=== PATIENT | female | born 1995 | race Caucasian/White ===

== ENCOUNTER 2019-01-29 11:20 | Outpatient (REF) | payer OTHER, SELFPAY ==
--- NOTE | 2019-01-29 10:00 | PAPFT_PTH ---
PATIENT: Lili Mack LOC: [facility] U#:[id number] AGE/SX: 23/F ROOM: RE01/29/[address]: TODD Oswald : 1995 BED: DIS: 01/29/2019 SPEC #: [id number] RECD: 01/29/19 12:58 STATUS: BRIAN REQ #: [id number] OMKAR: 01/29/19 10:[address]: Nishi Rea DEPT: [facility] Cytology RECD BY: Penny Leach ENTERED: 01/29/19 12:58 SP TYPE: PAPFT JOSEPH DR: Unknown,Unknown Tissues: 1 - CX/ENDOCX FOR PAP SMEARS Procedures: PAP THIN PREP/UVM Screening Comments: [id number]
== END 2019-01-29 11:40 ==
LOC: LBN 11:20
PROVIDERS: Visit Provider Nurse Practitioner Family
DX: Z12.4 Encounter for screening for malignant neoplasm of cervix (principal)
CPT/HCPCS: 88142

== ENCOUNTER 2019-04-21 15:48 | Outpatient (REF) | payer OTHER, SELFPAY ==
[2019-04-21 21:41] LABS: HCT 41.3 % (36.0-46.0); HGB 14.1 g/dL (12.0-15.5); Mean Corp. HGB Concentration 34.1 g/dL (32.0-36.0); Mean Corpuscular Hemoglobin 28.3 pg (27.0-33.0); Mean Corpuscular Volume 82.8 fL (80-95); Mean Platelet Volume 10.2 fL (8.0-11.0); Platelet Count 272 x1000/uL (130-400); RBC 4.99 m/cumm (4.00-5.20); White Blood Cell Count 6.16 k/cumm (4.4-10.8)
[2019-04-21 22:07] LABS: Total Iron Binding Capacity 412 ug/dL (250-450)
[2019-04-21 22:24] LABS: Ferritin 43 ng/mL (8-388); TSH (W/Ref FT4) 2.06 uIU/mL (0.358-3.74)
[2019-04-22 06:50] LABS: Vitamin D 25 Total 41.1 ng/ml (30-100)
[2019-04-23 10:50] LABS: Hepatitis B Surface Ab Positive
== END 2019-04-21 16:08 ==
LOC: NCHCN 15:48
PROVIDERS: PCP Nurse Practitioner Family; Visit Provider Nurse Practitioner Family
DX: R53.83 Other fatigue (principal); Z11.59 Encounter for screening for other viral diseases; Z02.0 Encounter for examination for admission to educational institution
CPT/HCPCS: 82306; 85027; 86706; 82728; 83550; 84443

== ENCOUNTER 2020-05-02 15:44 | Outpatient (REF) | payer OTHER, SELFPAY ==
--- NOTE | 2020-05-02 14:00 | PAPFT_PTH ---
PATIENT: Lili Mack LOC: [facility] U#:[id number] AGE/SX: 24/F ROOM: RE05/02/[address]: TODD Oswald : 1995 BED: DIS: 05/02/2020 SPEC #: [id number] RECD: 05/02/20 17:04 STATUS: BRIAN RENed #: [id number] OMKAR: 05/02/20 14:[address]: Nishi Rea DEPT: [facility] Cytology RECD BY: Penny Leach ENTERED: 05/02/20 17:05 SP TYPE: PAPFT OTHR DR: Chelsie Purdy Tissues: 1 - CX/ENDOCX FOR PAP SMEARS Procedures: PAP THIN PREP/UVM Screening Comments: [id number]
[2020-05-04 12:48] LABS: Chlamydia Result Negative (Negative); GC Result Negative (Negative)
== END 2020-05-02 16:04 ==
LOC: LBN 15:44
PROVIDERS: PCP Nurse Practitioner Family; Visit Provider Nurse Practitioner Family
DX: Z11.3 Encounter for screening for infections with a predominantly sexual mode of transmission (principal); Z12.4 Encounter for screening for malignant neoplasm of cervix
CPT/HCPCS: 87491; 87591; 88142

== ENCOUNTER 2020-07-13 11:26 | Outpatient (REF) | payer OTHER, SELFPAY ==
[2020-07-13 20:53] LABS: HCT 40.3 % (36.0-46.0); HGB 13.4 g/dL (11.2-15.7); MCH 27.5 pg (27.0-33.0); MCHC 33.3 % (32.0-36.0); MCV 82.8 fL (80-95); MPV 9.7 fL (8.0-11.0); Platelet Count 334 10^3/uL (130-400); RBC 4.87 10^6/uL (3.93-5.22); RDW 12.8 % (11.7-14.6); RDW-SD 38.3 fL; WBC 6.62 10^3/uL (4.4-10.8)
[2020-07-13 21:16] LABS: ALT 20 U/L (14-59); AST 23 U/L (15-37); Albumin 3.6 g/dL (3.4-5.0); Alkaline Phosphatase 72 U/L (46-116); Anion Gap 9.6 mmol/L (3-11); BUN 10 mg/dL (7-18); Bilirubin, Total 0.7 mg/dL (0.2-1.0); CO2 26.4 mmol/L (21.0-32.0); CREATININE 0.84 mg/dL (0.55-1.02); Calcium 8.9 mg/dL (8.5-10.1); Chloride 101 mmol/L (98-107); Glucose 81 mg/dL (74-106); Potassium 4.4 mmol/L (3.5-5.1); Sodium 137 mmol/L (136-145); TSH (W/Ref FT4) 1.72 uIU/mL (0.36-3.74); Total Protein 7.1 g/dL (6.4-8.2)
== END 2020-07-13 11:46 ==
LOC: NCHCN 11:26
PROVIDERS: PCP Nurse Practitioner Family; Visit Provider Nurse Practitioner Family
DX: F41.9 Anxiety disorder, unspecified (principal); R53.83 Other fatigue
CPT/HCPCS: 80053; 85027; 84443

== ENCOUNTER 2020-12-24 23:16 | Emergency (ER) | payer OTHER, SELFPAY ==
--- NOTE | 2020-12-24 23:15 | RT.EKG_ITS ---
APPROVED REPORT Exam: Resting ECG Patient Location: E HR:90 bpm ECG Measurements Heart Rate 90 AXIS NC 133 P 77 QRSd 90 QRS 66 QT 364 T 22 QTc 445 Conclusion Sinus rhythm...normal P axis, V-rate 60- 99
[2020-12-24 23:20] VITALS: BP 119/72; PULSE 83; RESP 16; TEMP 36.4; O2SAT 100
--- NOTE | 2020-12-24 23:24 | ED.GENADUL_ITS ---
Discharge Plan Disposition Patient Disposition: [facility] Condition: Stable Discharge Details Clinical Impression: Non-ST elevation VT (NSTEMI) Primary Care Provider: Chelsie Purdy ED Provider: Scar Pritchard Home Meds and New Rx's Prescriptions: No Action fluoxetine 20 mg capsule 20 mg PO DAILY RF: 0 desogestrel-ethinyl estradiol [Apri] 0.15-0.03 mg tablet 1 tab PO DAILY Qty: 84 RF: 3 Medical Decision Making 25 yo female with no signicant pmhx comes in with chest pain starting around 10pm tonight and has never had this before. She states it is a tightness and achiness across the anterior chest. No other symptoms, no radiation of pain, no n/v, no diaphoresis, no dyspnea. She arrives with stable gait speaking clearly. Has no pericardial effusion on bedside ultrasound and normal appearing EF. Her heart score is 0, will send troponin. She has a low wells score but can't rule out PE with perc as she is on control, will send d dimer. No tearing back pain and normal vascular exam so doubt dissection. Normal lung sliding on bedside u/s so doubt ptx and no fever or cough so doubt pna labs show a troponin of 0.17, she states she has only mild tightness at 1/10 now and appears well, aspirin and heparin ordered, [place] [facility] [place]. AWaiting return call pt remains stable and spoke with cardiology [place] [facility] [place] who accepts for transfer, Dr. Brown is the accepting, they recommend giving 75mg plavix at present time. second troponin increased to over 0.4 spoke with cardiology and they would like to increase plavix to 300mg, pt remains stable and feels well when ambulance arrived for transfer patient requested something to help her feel less anxious for transport so IV ativan given she remains hemodynamically stable at the present time Differential Diagnosis Differential Diagnosis: pericarditis, pe, ptx, nstemi Imaging Data Radiologic Study: Attestation: I personally reviewed and interpreted this imaging study as follows: Imaging: X-Ray My impression: no acute findings Lab Data Lab results reviewed: Yes I reviewed the patient's lab results. ECG Data Attestation: I personally reviewed and interpreted this ECG (s) as follows: Prior ECG tracings: not available for review Interpretation: sinus rhythm, rate of 90, pr 133, qtc 445, no acute st t wave ischemic findings 2nd ekg shows sinus rhythm, rate of 77, pr 134, qtc 430 HPI General Mode of arrival: ambulatory . Date/Time Provider Initiated Documentation: 12/24/20 23:16 . Limitations to Documentation: no limitations . Information obtained by: patient . History of Present Illness 25 year old F presents to the emergency department with the chief complaint of chest pain , described as moderate, Quality is described as aching, and is localized to the chest. Patient reports no radiation. Patient started experiencing this hour(s) (1) and it has been constant. No relieving factors improve symptom(s), No exacerbating factors reported . Patient did receive the following treatments prior to arrival, none Related Data Home Medications Medication Instructions Recorded Confirmed desogestrel 0.15 mg-ethinyl 1 tab PO DAILY #84 tab 05/02/20 12/24/20 estradiol 0.03 mg tablet fluoxetine 20 mg capsule 20 mg PO DAILY 05/02/20 12/24/20 Previous Rx's Medication Instructions Recorded desogestrel 0.15 mg-ethinyl 1 tab PO DAILY #84 tab 05/02/20 estradiol 0.03 mg tablet Allergies Allergy/AdvReac Type Severity Reaction Status Date / Time amoxicillin Allergy Intermediate RASH Verified 12/24/20 23:43 Review of Systems All systems reviewed & are unremarkable except as noted in HPI and below Constitutional Constitutional: Denies chills, Denies fever(s) and Denies weakness Cardiovascular Cardiovascular: Denies dyspnea Respiratory Respiratory: Denies cough and Denies dyspnea Gastrointestinal Gastrointestinal: Denies abdominal pain, Denies nausea and Denies vomiting Musculoskeletal Musculoskeletal: Denies joint swelling Neurologic Neurologic: Denies weakness Psychiatric Psychiatric: Denies depression PFSH Medical History Jaw dislocation Oral contraceptive use (01/17/16) Surgical History wisdom tooth extraction (03/21/15) Family History Other Diabetes maternal side Personal history of malignant neoplasm MGF-brain Father Diabetes Headache Mother Healthy adult Brother Healthy adult Social History Smoking/Tobacco Use Status: Never Smoking risk assessment performed?: Yes Alcohol Intake: current Alcohol Intake frequency: a few times a week Drug use: Never Substance use type: does not use Counseling provided: none Do you feel safe at home: Yes Do you feel safe in your relationship?: Yes Exam Const General: no acute distress Orientation: alert HENMT Head: normal to inspection Ears: external ears normal General nose exam: external nose normal Mouth: moist mucous membranes Eyes General: appearance normal, both eyes and all related structures Neck Neck: normal visual inspection Resp Effort & Inspection: normal respiratory effort and able to speak in complete sentences Cardio Rate: regular rate Skin General skin exam: no rashes or lesions noted Neuro General: patient alert and patient oriented x3 Extrem General: normal to inspection Psych Mental Status: mental status grossly normal Critical Care Time Critical Care Time Critical Care Time: Yes Total Critical Care Time: 60 (minutes) Attestation: time spent initiating heparin infusion, frequent reassesments and hemodynamic monitoring in a patient with nstemi and potential to deteriorate at any time
[2020-12-24 23:36] VITALS: BP 96/44; PULSE 74; RESP 20; O2SAT 99
[2020-12-24 23:38] LABS: Abs Immature Grans 0.01 10^3/uL (0.0-0.06); Absolute Basophil Count 0.03 10^3/uL (0.0-0.2); Absolute Eosinophil Count 0.23 10^3/uL (0.0-0.7); Absolute Lymphocyte Count 2.54 10^3/uL (1.2-3.4); Absolute Monocyte Count 0.57 10^3/uL (0.1-0.8); Absolute Neutrophil Count 3.22 10^3/uL (1.2-6.7); Basophils % 0.5; Eosinophils % 3.5; HCT 38.7 % (36.0-46.0); HGB 12.9 g/dL (11.2-15.7); Immature Grans % 0.2; Lymphocytes % 38.5; MCH 27.6 pg (27.0-33.0); MCHC 33.3 % (32.0-36.0); MCV 82.9 fL (80-95); MPV 8.8 fL (8.0-11.0); Monocytes % 8.6; Neutrophils % 48.7; Nucleated RBC 0 %; Platelet Count 253 10^3/uL (130-400); RBC 4.67 10^6/uL (3.93-5.22); RDW 12.6 % (11.7-14.6); RDW-SD 38.6 fL
[2020-12-25] VITALS (9 sets, daily range): BP systolic 105–129; BP diastolic 69–87; PULSE 68–91; RESP 12–22; O2SAT 97–99
[2020-12-25 00:04] LABS: ALT 18 U/L (14-59); AST 17 U/L (15-37); Albumin 3.4 g/dL (3.4-5.0); Alkaline Phosphatase 89 U/L (46-116); Anion Gap 10.3 mmol/L (3-11); BUN 13 mg/dL (7-18); Bilirubin, Direct 0.06 mg/dL (0.00-0.20); Bilirubin, Total 0.4 mg/dL (0.2-1.0); CO2 25.7 mmol/L (21.0-32.0); CREATININE 0.8 mg/dL (0.55-1.02); Calcium 8.8 mg/dL (8.5-10.1); Chloride 100 mmol/L (98-107); Glucose 96 mg/dL (74-106); Lipase 68 U/L (73-393); Magnesium 1.9 mg/dL (1.8-2.4); Potassium 3.4 mmol/L (3.5-5.1); Sodium 136 mmol/L (136-145); Total Protein 7.6 g/dL (6.4-8.2)
[2020-12-25 00:23] LABS: Troponin I 0.17 ng/mL (<0.06)
[2020-12-25 00:25] LABS: D-Dimer 390 ng/mlFEU (<500)
--- NOTE | 2020-12-25 00:30 | DI.RAD_ITS ---
EXAM: XR PORTABLE CHEST AP CLINICAL HISTORY: chest pain. TECHNIQUE: 2D digital imaging was performed. COMPARISON: No exams were available for comparison FINDINGS: Heart size is normal. The mediastinum is not widened. Lungs are clear. No infiltrates nor obvious pleural effusions. Chest leads in place IMPRESSION: No acute pulmonary findings on this single AP portable view of the chest. DATA REPOSITORY: RADIATION DOSE DELIVERED:
--- NOTE | 2020-12-25 00:53 | DI.VRAD_ITS ---
PROCEDURE INFORMATION: Exam: XR Chest, 1 View Exam date and time: 12/25/2020 12:45 AM Age: 25 years old Clinical indication: Chest pain; Type not specified TECHNIQUE: Imaging protocol: XR of the chest Views: 1 view. COMPARISON: No relevant prior studies available. FINDINGS: Lungs: Lungs are clear throughout with no mass or consolidation detected. Pleural spaces: Unremarkable. No pleural effusion. No pneumothorax. Heart/Mediastinum: Heart size is normal and vessel margins are sharply defined. Bones/joints: No acute osseous lesions are detected. IMPRESSION: No acute findings. Dictated and Authenticated by: Leonard Webb MD. Ordering:RAFAEL Abbott MD
[2020-12-25 01:19] LABS: Source Nasopharynx
[2020-12-25 01:57] LABS: COVID-19 PCR Negative (Negative); Influenza A PCR Negative (Negative); Influenza B PCR Negative (Negative); RSV PCR Negative (Negative)
[2020-12-25] MEDS: Clopidogrel 75 MG TAB PO (02:07)
[2020-12-25 02:43] LABS: Troponin I 0.43 ng/mL (<0.06)
--- NOTE | 2020-12-25 02:45 | RT.EKG_ITS ---
APPROVED REPORT Exam: Resting ECG Patient Location: E HR:77 bpm ECG Measurements Heart Rate 77 AXIS MO 134 P 29 QRSd 83 QRS 52 QT 380 T 19 QTc 430 Conclusion Sinus rhythm...normal P axis, V-rate 60- 99
[2020-12-25] MEDS: Clopidogrel 75 MG TAB 225 MG PO (03:06)
[2020-12-25] MEDS: LORazepam 2 MG/ML VIAL 1 MG IVP (03:10)
== END 2020-12-25 03:15 | disposition short-term general hospital (02) ==
PROVIDERS: Emergency Provider Emergency Medicine; PCP Nurse Practitioner Family
DX: I21.4 Non-ST elevation (NSTEMI) myocardial infarction (principal); F41.9 Anxiety disorder, unspecified; Z20.822 Contact with and (suspected) exposure to COVID-19
CPT/HCPCS: 80053; 81025; 83690; 87637; 93005; 96365; 96366; 96375; 96376; 99291; 71045; 82248; 83735; 84484; 85025; 85379; 93010; J2060

== ENCOUNTER 2021-02-07 08:21 | Outpatient (CLI) | payer OTHER, SELFPAY ==
[2021-02-07 09:31] LABS: Troponin I < 0.05 ng/mL (<0.06)
== END 2021-02-07 08:22 | disposition home or self-care (01) ==
PROVIDERS: PCP Nurse Practitioner Family; Visit Provider Nurse Practitioner Family
DX: R07.9 Chest pain, unspecified (principal)
CPT/HCPCS: 36415; 84484

== ENCOUNTER 2021-02-16 16:39 | Outpatient (REF) | payer OTHER, SELFPAY ==
[2021-02-16 13:43] LABS: TSH (W/Ref FT4) 1.55 uIU/mL (0.36-3.74)
== END 2021-02-16 16:40 | disposition home or self-care (01) ==
LOC: NCHCN 16:39
PROVIDERS: PCP Nurse Practitioner Family; Visit Provider Nurse Practitioner Family
DX: R94.6 Abnormal results of thyroid function studies (principal)
CPT/HCPCS: 84443

== ENCOUNTER 2021-05-14 08:46 | Outpatient (REF) | payer OTHER, SELFPAY ==
--- NOTE | 2021-05-14 08:30 | PAPFT_PTH ---
PATIENT: Lili Mack LOC: [facility] U#:[id number] AGE/SX: 25/F ROOM: RE05/14/[address]: TODD Oswald : 1995 BED: DIS: 05/14/2021 SPEC #: [id number] RECD: 05/14/21 12:47 STATUS: BRIAN RENed #: [id number] OMKAR: 05/14/21 08:[address]: Nishi Rea DEPT: [facility] Cytology RECD BY: Penny Leach ENTERED: 05/14/21 12:48 SP TYPE: PAPFT OTHR DR: Chelsie Purdy Tissues: 1 - CX/ENDOCX FOR PAP SMEARS Procedures: PAP THIN PREP/UVM Screening Comments: [id number]
== END 2021-05-14 08:47 | disposition home or self-care (01) ==
LOC: LBN 08:46
PROVIDERS: PCP Nurse Practitioner Family; Visit Provider Nurse Practitioner Family
DX: Z12.4 Encounter for screening for malignant neoplasm of cervix (principal)
CPT/HCPCS: 88142

== ENCOUNTER 2022-02-15 16:34 | Outpatient (REF) | payer OTHER, SELFPAY ==
[2022-02-15 21:20] LABS: HCT 41.6 % (36.0-46.0); HGB 13.8 g/dL (11.2-15.7); MCH 28.7 pg (27.0-33.0); MCHC 33.2 % (32.0-36.0); MCV 86.5 fL (80-95); MPV 9.8 fL (8.0-11.0); Platelet Count 318 10^3/uL (130-400); RBC 4.81 10^6/uL (3.93-5.22); RDW 12.3 % (11.7-14.6); RDW-SD 39.1 fL; WBC 7.38 10^3/uL (4.4-10.8)
[2022-02-15 21:36] LABS: Anion Gap 7.6 mmol/L (3-11); BUN 13 mg/dL (7-18); CO2 29.4 mmol/L (21.0-32.0); CREATININE 0.9 mg/dL (0.55-1.02); Calcium 9.1 mg/dL (8.5-10.1); Chloride 103 mmol/L (98-107); Glucose 82 mg/dL (74-106); Potassium 4.1 mmol/L (3.5-5.1); Sodium 140 mmol/L (136-145)
[2022-02-15 21:37] LABS: Iron 59 ug/dL (50-170); Total Iron Binding Capacity 350 ug/dL (250-450); Transferrin Sat 17 % (15-50)
== END 2022-02-15 16:35 | disposition home or self-care (01) ==
LOC: NCHCN 16:34
PROVIDERS: PCP Nurse Practitioner Family; Visit Provider Nurse Practitioner Family
DX: F41.8 Other specified anxiety disorders (principal); R94.6 Abnormal results of thyroid function studies; R53.83 Other fatigue
CPT/HCPCS: 80048; 85027; 83540; 83550; 84443

== ENCOUNTER 2022-06-10 14:54 | Outpatient (REF) | payer OTHER, SELFPAY ==
--- NOTE | 2022-06-10 13:00 | PAPFT_PTH ---
PATIENT: Lili Mack LOC: [facility] U#:[id number] AGE/SX: 26/F ROOM: RE06/10/[address]: TODD Oswald : 1995 BED: DIS: 06/10/2022 SPEC #: [id number] RECD: 06/10/22 16:56 STATUS: BRIAN RENed #: [id number] OMKAR: 06/10/22 13:[address]: Nishi Rea DEPT: [facility] Cytology RECD BY: Timmy Garcia Tissues: 1 - CX/ENDOCX FOR PAP SMEARS Procedures: PAP THIN PREP/UVM Screening Comments: [id number]
== END 2022-06-10 14:55 | disposition home or self-care (01) ==
LOC: LBN 14:54
PROVIDERS: PCP Nurse Practitioner Family; Visit Provider Nurse Practitioner Family
DX: Z12.4 Encounter for screening for malignant neoplasm of cervix (principal)
CPT/HCPCS: 88142

== ENCOUNTER 2022-07-06 19:45 | Emergency (ER) | payer OTHER, SELFPAY ==
[2022-07-06 20:02] VITALS: BP 130/89; PULSE 95; RESP 18; TEMP 36.7; O2SAT 98
--- NOTE | 2022-07-06 20:05 | ED.GENADUL_ITS ---
Discharge Plan Disposition Patient Disposition: HOME Condition: Good Discharge Details Clinical Impression: Injury of conjunctiva and corneal abrasion of right eye w/o FB, Cat scratch Primary Care Provider: Chelsie Purdy ED Provider: Kevin Villarreal Home Meds and New Rx's Prescriptions: No Action Kyleena 17.5 mcg/24 hrs (5 yrs) 19.5 mg intrauterine device 1 device intrauterine ONCE Rx Instructions: as a single dose fluoxetine 20 mg capsule 20 mg PO DAILY Label Comments: 12/17/21- pt reports taking 40 mg Discharge Instructions Instructions: Corneal Abrasion (ED) Additional Instructions: Please apply the antibiotic drops, 2 drops every 3-4 hours for the next 7 to 10 days. Take Tylenol and Motrin as needed for pain. If you notice any worsening of your symptoms, or any new symptoms such as vomiting, diarrhea, fever, chills, shortness of breath, chest pain, numbness, weakness, or fainting , please return immediately to the emergency department for reevaluation. Please follow up with your primary care provider as soon as possible for reassessment and reevaluation . As always, it was a pleasure participating in your medical care today. Referrals: Chelsie Purdy [Primary Care Provider] - Medical Decision Making 26-year-old female with no significant past medical history whose immunizations are up-to-date including for tetanus, presents today for evaluation of a cat scratch to her right eyeball. Patient states that it happened about 20 minutes ago. Cats shots are up-to-date. Patient admits to have mild irritation on the eyeball, but no other complaints. Pain is made worse with movement of the eye. Exam demonstrates a corneal abrasion over the lateral aspect of the eye. Negative Britton sign. Immunizations are up-to-date. We will give polymyxin drops. Recommend Tylenol and Motrin at home. Discussed red flags for which to return. I have extensively reviewed the treatment plan and discharge instructions with the patient. I have addressed all patient concerns at this t ermias. The patient was made aware of what symptoms to monitor for that would warrant a return to the emergency department. Discussed the plan with the patient, they demonstrate verbal understanding and agreement with our assessment and plan at this time. The documentation in this chart was dictated using [employer] dictation software. Please excuse any dictation errors. HPI General Date/Time Provider Initiated Documentation: 07/06/22 19:52 . HPI Narrative: 26-year-old female with no significant past medical history whose immunizations are up-to-date including for tetanus, presents today for evaluation of a cat scratch to her right eyeball. Patient states that it happened about 20 minutes ago. Cats shots are up-to-date. Patient admits to have mild irritation on the eyeball, but no other complaints. Pain is made worse with movement of the eye. Related Data Home Medications Medication Instructions Recorded Confirmed fluoxetine 20 mg capsule 20 mg PO DAILY 12/17/21 07/06/22 levonorgestrel 17.5 mcg/24 hrs 1 device intrauterine ONCE 12/17/21 07/06/22 (5yrs) 19.5mg intrauterine device (Kyleena) Allergies Allergy/AdvReac Type Severity Reaction Status Date / Time amoxicillin Allergy Intermediate RASH Verified 07/06/22 20:05 General Stated Complaint: EyeProblem SANDOVAL: 4 Review of Systems All systems reviewed & are unremarkable except as noted in HPI and below PFSH All Active Problems Injury of conjunctiva and corneal abrasion of right eye w/o FB (Acute) Cat scratch (Acute) TMJ arthralgia (Acute) Medical History Jaw dislocation Presence of IUD Surgical History wisdom tooth extraction (03/21/15) Family History Other Diabetes maternal side Personal history of malignant neoplasm MGF-brain Father Diabetes Headache Mother Healthy adult Brother Healthy adult Social History Smoking/Tobacco Use Status: Never Smoking risk assessment performed?: Yes Alcohol Intake: current Alcohol Intake frequency: a few times a week Drug use: Never Substance use type: does not use Counseling provided: none Do you feel safe at home: Yes Do you feel safe in your relationship?: Yes Exam Narrative Exam Narrative: 1.Const: Well-nourished, Well-developed, appearing stated age 2.Eyes: PERRL, no conjunctival injection, and symmetrical lids. Righteye: EOMI, PERRL, Peripheral vision intact. No nystagmus. No clinical signs of septal/orbital cellulitis, no redness around the eye, no proptosis. No hyphema, no signs of trauma around the eye, no periorbital emphysema. No sluggishness of the pupil. No ophthalmoplegia. No afferent pupillary defect. Fluorescein exam is positive for corneal abrasion with a linear excoriation going from the 10 o'clock position down to the 7 o'clock position., negative Britton sign. Visual acuity as documented in chart. Eversion of the lids shows no evidence of retained foreign bodies 3.ENT: Atraumatic external nose and ears. Moist MM. Neck: Symmetric, trachea midline, No thyromegaly. 4.CVS: +S1/S2, No murmurs or gallops. Peripheral pulses 2+ and equal in all extremities. Brisk capillary refill in all extremities. 5.RESP: Unlabored respiratory effort. Clear to auscultation bilaterally. No wheezes rales or rhonchi 6.GI: Soft, Nontender/Nondistended, No hepatosplenomegaly. No guarding or rebound. 7.MSK: Normocephalic/Atraumatic, Extremities w/o deformity or ttp No cyanosis or clubbing, Normal movement of all extremities 8.Skin: Warm, Dry. No rashes or lesions. 9.Neuro: design analyst II-XII grossly intact. Sensation grossly intact, no focal neurologic deficits. 10.Psych: (AAO) x3. Appropriate mood and affect Course Vital Signs Vital signs: Vital Signs Temperature 36.7 C 07/06/22 20:02 Pulse 95 H 07/06/22 20:02 Respiratory Rate 18 07/06/22 20:02 Blood Pressure 130/89 07/06/22 20:02 Pulse Oximetry 98 07/06/22 20:02 Temperature 36.7 C 07/06/22 20:02 Temperature Source Oral 07/06/22 20:02 Pulse 95 H 07/06/22 20:02 Respiratory Rate 18 07/06/22 20:02 Respiratory Effort Non-Labored 07/06/22 20:04 Blood Pressure 130/89 07/06/22 20:02 Blood Pressure Position Sitting 07/06/22 20:02 Pulse Oximetry 98 07/06/22 20:02 Oxygen Delivery Method Room Air 07/06/22 20:02 Oxygen Flow Rate 0 07/06/22 20:02 Pain Level 0 07/06/22 20:02
[2022-07-06] MEDS: Tetracaine 0.5% 4 ML BTL OP (20:14)
[2022-07-06] MEDS: Polymyxin B/Trimethoprim Ophth Soln 10 ML BTL OD (20:14)
[2022-07-06] MEDS: Fluorescein STRIPS 100/BOX 1 MG OP (20:14)
== END 2022-07-06 20:15 | disposition home or self-care (01) ==
PROVIDERS: Emergency Provider Student in an Organized Health Care Education/Training Program; PCP Nurse Practitioner Family
DX: S05.01XA Injury of conjunctiva and corneal abrasion without foreign body, right eye, initial encounter (principal); W55.03XA Scratched by cat, initial encounter
CPT/HCPCS: 99283; 99284

== ENCOUNTER 2023-01-30 12:30 | Outpatient (REF) | payer OTHER, SELFPAY ==
[2023-01-30 17:20] LABS: Anion Gap 8.1 mmol/L (3-11); BUN 13 mg/dL (7-18); CO2 27.9 mmol/L (21.0-32.0); CREATININE 0.9 mg/dL (0.55-1.02); Chloride 103 mmol/L (98-107); Estimated GFR 89.86 (mL/min/1.73m2); Glucose 95 mg/dL (74-106); Potassium 4.9 mmol/L (3.5-5.1); Sodium 139 mmol/L (136-145)
== END 2023-01-30 12:31 | disposition home or self-care (01) ==
LOC: NCHCN 12:30
PROVIDERS: PCP Nurse Practitioner Family; Visit Provider Nurse Practitioner Family
DX: R53.83 Other fatigue (principal); R94.6 Abnormal results of thyroid function studies; L68.0 Hirsutism
CPT/HCPCS: 80048; 84443

== ENCOUNTER 2024-04-19 10:44 | Outpatient (CLI) | payer OTHER, SELFPAY ==
[2024-04-19 16:27] LABS: TSH (W/Ref FT4) 1.33 uIU/mL (0.36-3.74)
[2024-04-20 18:45] LABS: FSH 7.4 mIU/mL (See Note)
[2024-04-20 18:54] LABS: Prolactin 14.3 ng/mL (See Note)
[2024-04-26 09:38] LABS: Testosterone, Free 0.37 ng/dL (<0.13-1.06); Testosterone, Total 28 ng/dL (8-60)
== END 2024-04-19 10:45 | disposition home or self-care (01) ==
LOC: LBO 04-20 10:44
PROVIDERS: PCP Nurse Practitioner Family; Visit Provider Nurse Practitioner Women's Health
DX: N91.2 Amenorrhea, unspecified (principal)
CPT/HCPCS: 36415; 84402; 84403; 83001; 84146; 84443

== ENCOUNTER 2024-06-23 18:10 | Outpatient (CLI) | payer OTHER, SELFPAY ==
[2024-06-23 16:04] LABS: HCT 38.7 % (36.0-46.0); HGB 13.2 g/dL (11.2-15.7); MCH 27.6 pg (27.0-33.0); MCHC 34.1 % (32.0-36.0); MCV 81 fL (80-95); MPV 8.9 fL (8.0-11.0); Platelet Count 293 10^3/uL (130-400); RBC 4.79 10^6/uL (3.93-5.22); RDW 13.2 % (11.7-14.6); WBC 8.03 10^3/uL (4.4-10.8)
[2024-06-23 17:13] LABS: ALT 24 U/L (14-59); AST 17 U/L (15-37); Albumin 3.4 g/dL (3.4-5.0); Alkaline Phosphatase 110 U/L (46-116); BUN 7 mg/dL (7-18); Bilirubin, Total 0.43 mg/dL (0.2-1.0); CREATININE 0.7 mg/dL (0.55-1.02); Chloride 102 mmol/L (98-107); Estimated GFR 120.74 (mL/min/1.73m2); Glucose 101 mg/dL (74-106); Potassium 3.6 mmol/L (3.5-5.1); Sodium 137 mmol/L (136-145); Total Protein 7.4 g/dL (6.4-8.2)
[2024-06-23 17:31] LABS: Anion Gap 13.6 mmol/L (3-11)
[2024-06-23 17:33] LABS: CO2 21.4 mmol/L (21.0-32.0)
== END 2024-06-23 18:11 | disposition home or self-care (01) ==
LOC: LBO 18:11
PROVIDERS: PCP Nurse Practitioner Family; Visit Provider Obstetrics & Gynecology Gynecology
DX: O02.1 Missed abortion (principal); Z01.818 Encounter for other preprocedural examination; Z34.90 Encounter for supervision of normal pregnancy, unspecified, unspecified trimester
CPT/HCPCS: 36415; 80053; 85027; 86850; 86900; 86901; 84702

== ENCOUNTER 2024-06-24 08:55 | Day surgery (SDC) | payer OTHER, SELFPAY ==
--- NOTE | 2024-06-24 10:28 | PGE_ITS ---
Date of Service Date of service: 06/24/24 Time of Service: 10:28 Subjective Subjective Interval history since last seen: I was called by [facility]SU staff regarding pt undergoing D&C this morning. She requests not to have procedure. Pt had POCUS in [facility] yesterday at time for RADHIKA confirmation/viability. Non-viable reeves IUP was diagnosed and she was counseled regarding options for treatment of Missed AB at 6w6d. She was scheduled for suction D&C this morning. TV u/s performed in DI. No cardiac activity noted. After speaking to pt the procedure was cancelled for today and she will return to [facility] on Friday06/28/24 for repeat POCUS exam. Pt is agreeable to the plan. Time Spent with Patient Time Spent with Patient: >50 minutes Time was spent: preparing to see the patient(eg.review tests), obtaining and/or reviewing separately otained hiistory, ordering medications,tests, procedures, referring, communicating with other health nanny caregiver, indepentently interpreting results and counseling the patient
== END 2024-06-24 08:56 | disposition home or self-care (01) ==
LOC: SUR 08:55
PROVIDERS: PCP Nurse Practitioner Family; Visit Provider Obstetrics & Gynecology Gynecology
DX: Z53.09 Procedure and treatment not carried out because of other contraindication (principal)

== ENCOUNTER 2024-06-29 06:21 | Day surgery (SDC) | payer OTHER, SELFPAY ==
[2024-06-29] VITALS (24 sets, daily range): BP systolic 81–116; BP diastolic 41–78; PULSE 70–107; RESP 11–21; TEMP 36.3–36.5; O2SAT 97–100; BMI 29.0
[2024-06-29 06:56] LABS: HCT 36.2 % (36.0-46.0); HGB 12.7 g/dL (11.2-15.7); MCH 27.9 pg (27.0-33.0); MCHC 35.1 % (32.0-36.0); MCV 80 fL (80-95); Platelet Count 245 10^3/uL (130-400); RBC 4.55 10^6/uL (3.93-5.22); RDW 13.5 % (11.7-14.6); RDW-SD 38.8 fL; WBC 6.78 10^3/uL (4.4-10.8)
[2024-06-29] MEDS: Lactated Ringers 1,000 ML 125 ML IV (07:05)
[2024-06-29 07:09] LABS: ALT 16 U/L (14-59); AST 8 U/L (15-37); Albumin 3.2 g/dL (3.4-5.0); Alkaline Phosphatase 96 U/L (46-116); Anion Gap 11.3 mmol/L (3-11); BUN 5 mg/dL (7-18); Bilirubin, Total 0.67 mg/dL (0.2-1.0); CO2 22.7 mmol/L (21.0-32.0); CREATININE 0.7 mg/dL (0.55-1.02); Calcium 8.7 mg/dL (8.5-10.1); Chloride 105 mmol/L (98-107); Estimated GFR 120.74 (mL/min/1.73m2); Glucose 94 mg/dL (74-106); Potassium 3.4 mmol/L (3.5-5.1); Sodium 139 mmol/L (136-145); Total Protein 6.7 g/dL (6.4-8.2)
[2024-06-29] MEDS: DOXYCYCLINE 100 MG in Normal Saline 100 ML IVPB (07:10)
[2024-06-29 07:12] LABS: HCG Qual (Serum) Positive
--- NOTE | 2024-06-29 07:16 | ANES.PREOP_ITS ---
General Info Date of Service Date Performed: 06/29/24 Height: 5 ft 5 in Weight: 79.3 kg Body Mass Index (BMI): 29.0 Surgical Procedure: Operation Date: 06/29/24 07:40 Proposed Procedure Side Surgeon p Richi D & C Clarissa Richards MD Meds Allergies and Home Medications Allergies Allergy/AdvReac Type Severity Reaction Status Date / Time amoxicillin Allergy Intermediate RASH Verified 06/29/24 06:43 Home Medication ?Medication ?Instructions ?Recorded magnesium 200 mg tablet 200 mg PO DAILY 04/19/24 folic acid 400 mcg tablet 0.4 mg PO DAILY 05/31/24 [id number]-[id number] 18 mg-FA 400 1 tab PO DAILY 05/31/24 mcg-calcium 500 mg-vit K 50 mcg tablet (Women's Multivitamin) fluoxetine 40 mg capsule 10 mg PO DAILY 06/23/24 Current Visit Medications: Current Medications Generic Name Dose Route Start Last Admin Trade Name Freq PRN Reason Stop Dose Admin Ringer's Solution 1,000 mls @ 125 mls/hr 06/29/24 06:00 IV 06/29/24 23:59 INFUSION WILLIAM Doxycycline Hyclate 100 mg/ 100 mls @ 100 mls/hr 06/29/24 06:00 Sodium Chloride IVPB 06/29/24 23:59 GROUND SUPPORT EQUIPMENT ASSEMBLER [facility] IV Miscellaneous Supplies 1 each 06/29/24 06:00 Iv Access IV 06/29/24 23:59 DIRECTED WILLIAM Sodium Chloride 0 ml 06/29/24 06:00 Normal Saline Flush 10 Ml Syr IV 06/29/24 23:59 PRN PRN Sodium Chloride 0 ml 06/29/24 06:00 Normal Saline 10 Ml Vial IJ 06/29/24 23:59 DIRECTED PRN Sterile Water 0 ml 06/29/24 06:00 Water,Injection,Sterile 10 Ml Vial IJ 06/29/24 23:59 DIRECTED PRN PFSH Active Problems Active Problems: Problem Status Onset Code Missed Acute O02.1 Injury of conjunctiva and corneal abrasion of right eye w/o FB Acute S05.01XA TMJ arthralgia Acute M26.629 Medical History Medical History Wrist fracture, closed right; child Jaw dislocation Medical History Comments:: Slight nausea in past Surgical History Surgical History wisdom tooth extraction (03/21/15) Tobacco Smoking/Tobacco Use Status: Never Alcohol Alcohol Intake: current Alcohol intake frequency: a few times a week Substance Use Substance use: Rarely Substance use type: marijuana Counseling provided: none Prental History History 2 1 Para Hx # Term Pregnancies Multiple births Hx # Pregnancies Ectopic pregnancies AB induced Hx Number of Living Children 0 AB spontaneous 1 Vital Signs and Lab Results Vital Signs Most Recent Vital Signs in EMR: Most Recent Vital Signs Temp Pulse Resp BP Pulse Ox 36.5 C 89 16 108/75 98 06/29/24 06:46 06/29/24 06:46 06/29/24 06:46 06/29/24 06:46 06/29/24 06:46 Lab Results 06/29/24 06:41 06/29/24 06:41 Blood Type / Crossmatch: 2 Antibody Screen NEGATIVE 06/23/24 Complete Blood Count: 2 White Blood Count 6.78 10^3/uL (4.4-10.8) 06/29/24 06:41 Red Blood Count 4.55 10^6/uL (3.93-5.22) 06/29/24 06:41 Hemoglobin 12.7 g/dL (11.2-15.7) 06/29/24 06:41 Hematocrit 36.2 % (36.0-46.0) 06/29/24 06:41 Platelet Count 245 10^3/uL (130-400) 06/29/24 06:41 Complete Metabolic Panel: 2 Sodium 139 mmol/L (136-145) 06/29/24 06:41 Potassium 3.4 mmol/L (3.5-5.1) L 06/29/24 06:41 Chloride 105 mmol/L (98-107) 06/29/24 06:41 Carbon Dioxide 22.7 mmol/L (21.0-32.0) 06/29/24 06:41 BUN 5 mg/dL (7-18) L 06/29/24 06:41 Creatinine 0.7 mg/dL (0.55-1.02) 06/29/24 06:41 Est GFR (CKD-EPI 2020) 120.74 (mL/min/1.73m2) 06/29/24 06:41 Calcium 8.7 mg/dL (8.5-10.1) 06/29/24 06:41 Albumin 3.2 g/dL (3.4-5.0) L 06/29/24 06:41 Glucose 94 mg/dL (74-106) 06/29/24 06:41 Liver Function Panel: 2 Alanine Aminotransferase (ALT/SGPT) 16 U/L (14-59) 06/29/24 06: 41 Aspartate Amino Transf (AST/SGOT) 8 U/L (15-37) L 06/29/24 06:4 1 Coagulation Panel: 2 No Data to Display Cardiac Panel: 2 No Data to Display Arterial Blood Gas: 2 No Data to Display Venous Blood Gas: 2 No Data to Display Pancreas Panel: 2 No Data to Display Thyroid Panel: 2 No Data to Display Infectious Disease: 2 No Data to Display Blood Cultures: 2 No Data to Display Toxicology Panel: 2 No Data to Display Panel: 2 Urine HCG, Qualitative Positive 05/31/24 13:21 Serum HCG, Qualitative Positive A 06/29/24 06:41 Beta HCG, Quantitative 622075 mIU/mL (1-3) H 06/23/24 15:50 Anesthesia Assessment and Plan Anesthesia History Personal History: No History of Anesthesia Complications Family History: No Family History of Anesthesia Complications Exercise Tolerance Exercise Tolerance: Metabolic Equivalents>4 Pertinent Negatives Pertinent Negatives: No Symptoms of GERD Cardiac & Pulmonary Exam Cardiac Exam: Normal S1/S2 Heart Sounds Pulmonary Exam: Clear Bilateral Breath Sounds Implantable Cardiac Device Does patient have a Pacemaker or an ICD?: No Airway Exam Known Difficult Airway: No Mallampati Class: 2 Mouth Opening: Normal (> 3cm) Thyromental Distance: Greater than 3 cm Neck Range of Motion: Full ROM Neck Circumference: Normal Teeth Condition: Normal Dentition ASA Classification ASA Score: ASA 2 Emergency Case?: No NPO Status NPO Status: NPO Clears >2 hours, Solids >8 hours Status Status: Confirmed Anesthesia Plan Resuscitation Status: Full Code Anesthesia Technique: General Anesthesia Airway Planned: Natural Airway Monitors Used: Standard Monitors
[2024-06-29] MEDS: Lidocaine 1% Multi-Dose W/EPI 1/100,000 50 ML VIAL (07:56)
--- NOTE | 2024-06-29 07:57 | POCSPONT_PTH ---
PATIENT: Lili Mack LOC: [facility] U#:[id number] AGE/SX: 28/F ROOM: RE06/29/[address]: Clarissa Richards MD : 1995 BED: DIS: 06/29/2024 SPEC #: [id number] RECD: 06/29/24 12:45 STATUS: BRIAN REQ #: [id number] OMKAR: 06/29/24 07:[address]: Clarissa Richards DEPT: Surgical Specimen RECD BY: Penny Leach ENTERED: 06/29/24 12:46 SP TYPE: POCSPONT JOSEPH DR: Chelsie Purdy Tissues: 1 - ,SPONTANEOUS Procedures: GROSS AND MICRO LEVEL 4 Comments: [id number]
--- NOTE | 2024-06-29 08:20 | W.PM.OP ---
Date of service: 06/29/24 Time of Service: 08:00 Operative Note Operative Note DATE OF PROCEDURE: 06/29/24 PRE-OP DIAGNOSIS: Missed 7wks POST-OP DIAGNOSIS: same PROCEDURE: Suction dilation and curettage SURGEON: Clarissa Richards Refer to Anesthesia Record ESTIMATED BLOOD LOSS: 20 COMPLICATIONS: None Patient was transported to: same day Patient's condition: stable Indications: Pt with a 7wk missed . Declines medical management. Findings: Small uterus. POC removed with minimal bleeding. Procedure Description: After informed consent was signed the patient was taken to the operating room and given General room air anesthesia. SCDs were placed on her legs. She was prepped and draped in the dorsal lithotomy position in the [facility]. A time out was performed. Her bladder was drained of urine if not done immediately prior to entrance to the OR. Exam under anesthesia revealed normal external genitalia, vagina normal for age and a normal sized uterus. A speculum was placed into the vagina to reveal the cervix. The anterior lip of the cervix was grasped with a single tooth tenaculum. A paracervical block was given with 10ml of 0.25% marcaine. The cervix was dilated. The suction device was assembled and turned on. The uterine cavity was gently suctioned to remove the products of conception. There was a gritty texture in all four quadrants of the uterine cavity. There was minimal bleeding and the uterus was noted to be firm. The tenaculum was removed from the cervix with good hemostasis. The speculum was removed from the vagina. The patient was placed back into the supine position. She was moved to the stretcher and taken to the recovery room in stable condition.
[2024-06-29] MEDS: Ketorolac 15 MG/ML VIAL IVP (08:23)
--- NOTE | 2024-06-29 09:22 | W.ANESPOSTOP ---
Postoperative Evaluation Date, Time and Location Date Performed: 06/29/24 Time Performed: 09:22 Patient Location: Day Surgery Unit Vital Signs Most Recent Imported Vital Signs: Most Recent Vital Signs Temp Pulse Resp BP Pulse Ox 36.3 C L 71 16 107/68 100 06/29/24 08:45 06/29/24 08:45 06/29/24 08:45 06/29/24 08:45 06/29/24 08:45 Pain Score Most Recent Pain Score: Most Recent Pain Score Pain Level 4 06/29/24 08:45 Assessment Mental Status: Awake (Alert & Oriented to Patient Baseline) Airway and Respiratory Function: Patent airway with normal (patient baseline) respiratory exam Cardiovascular Function: Hemodynamically Stable Hydration Status: Adequately Hydrated Nausea & Vomiting: No Nausea or Vomiting Pain: Pain is tolerable per patient Peripheral Nerve Block: Patient did not receive a nerve block
== END 2024-06-29 09:45 | disposition home or self-care (01) ==
PROVIDERS: PCP Nurse Practitioner Family; Visit Provider Obstetrics & Gynecology
PROC: (CPT 59841; principal; 2024-06-29 07:30)
DX: O02.1 Missed abortion (principal); Z3A.01 Less than 8 weeks gestation of pregnancy
CPT/HCPCS: 59820; 36415; 80053; 85027; 86850; 86900; 86901; 88305; 84703; J1100; J1885; J2001; J2004; J2250; J2405; J2704

== ENCOUNTER 2024-09-06 11:32 | Outpatient (CLI) | payer OTHER, SELFPAY ==
[2024-09-06 12:49] LABS: HCG Quant, Pregnancy 16 mIU/mL (1-3)
== END 2024-09-06 11:33 | disposition home or self-care (01) ==
LOC: LBO 11:34
PROVIDERS: Nurse Practitioner Women's Health; PCP Nurse Practitioner Family; Visit Provider Obstetrics & Gynecology
DX: N91.2 Amenorrhea, unspecified (principal); Z01.419 Encounter for gynecological examination (general) (routine) without abnormal findings; Z32.02 Encounter for pregnancy test, result negative; Z31.9 Encounter for procreative management, unspecified
CPT/HCPCS: 36415; 84702

== ENCOUNTER 2024-09-08 03:54 | Outpatient (CLI) | payer OTHER, SELFPAY ==
[2024-09-08 11:59] LABS: HCG Quant, Pregnancy 13 mIU/mL (1-3)
== END 2024-09-08 03:55 | disposition home or self-care (01) ==
LOC: LBO 03:54
PROVIDERS: PCP Nurse Practitioner Family; Visit Provider Nurse Practitioner Women's Health
DX: Z31.9 Encounter for procreative management, unspecified (principal); N91.2 Amenorrhea, unspecified; Z01.419 Encounter for gynecological examination (general) (routine) without abnormal findings; Z32.02 Encounter for pregnancy test, result negative
CPT/HCPCS: 36415; 84702

== ENCOUNTER 2024-09-13 03:31 | Outpatient (CLI) | payer OTHER, SELFPAY ==
[2024-09-13 14:24] LABS: HCG Quant, Pregnancy 10 mIU/mL (1-3)
== END 2024-09-13 03:32 | disposition home or self-care (01) ==
LOC: LBO 03:31
PROVIDERS: PCP Nurse Practitioner Family; Visit Provider Nurse Practitioner Women's Health
DX: N91.2 Amenorrhea, unspecified (principal); Z01.419 Encounter for gynecological examination (general) (routine) without abnormal findings; Z31.9 Encounter for procreative management, unspecified; Z32.02 Encounter for pregnancy test, result negative
CPT/HCPCS: 36415; 84702

== ENCOUNTER 2024-09-20 03:02 | Outpatient (CLI) | payer OTHER, SELFPAY ==
[2024-09-20 16:22] LABS: HCG Quant, Pregnancy 8 mIU/mL (1-3)
== END 2024-09-20 03:03 | disposition home or self-care (01) ==
LOC: LBO 03:03
PROVIDERS: PCP Nurse Practitioner Family; Visit Provider Nurse Practitioner Women's Health
DX: N91.2 Amenorrhea, unspecified (principal); Z32.01 Encounter for pregnancy test, result positive
CPT/HCPCS: 36415; 84702

== ENCOUNTER 2024-11-01 13:18 | Outpatient (CLI) | payer OTHER, SELFPAY ==
[2024-11-01 09:54] LABS: HCG Quant, Pregnancy 1 mIU/mL (1-3)
[2024-11-04 12:28] LABS: Antimullerian Hormone 6.9 ng/mL (0.89-9.9)
== END 2024-11-01 13:19 | disposition home or self-care (01) ==
LOC: LBO 13:19
PROVIDERS: PCP Nurse Practitioner Family; Visit Provider Nurse Practitioner Women's Health
DX: Z32.00 Encounter for pregnancy test, result unknown (principal); Z31.9 Encounter for procreative management, unspecified
CPT/HCPCS: 36415; 83520; 84702

== ENCOUNTER 2024-12-24 07:47 | Outpatient (CLI) | payer OTHER, SELFPAY ==
[2024-12-24 08:22] LABS: HCG Quant, Pregnancy 24 mIU/mL (1-3)
== END 2024-12-24 07:48 | disposition home or self-care (01) ==
LOC: LBO 07:47
PROVIDERS: PCP Nurse Practitioner Family; Visit Provider Obstetrics & Gynecology
DX: O26.851 Spotting complicating pregnancy, first trimester (principal)
CPT/HCPCS: 36415; 84702

== ENCOUNTER 2024-12-27 03:07 | Outpatient (CLI) | payer OTHER, SELFPAY ==
[2024-12-27 15:05] LABS: HCG Quant, Pregnancy 46 mIU/mL (1-3)
== END 2024-12-27 03:08 | disposition home or self-care (01) ==
LOC: LBO 03:07
PROVIDERS: PCP Nurse Practitioner Family; Visit Provider Obstetrics & Gynecology
DX: O26.851 Spotting complicating pregnancy, first trimester (principal); Z32.01 Encounter for pregnancy test, result positive
CPT/HCPCS: 36415; 84702

== ENCOUNTER 2025-01-31 12:49 | Outpatient (CLI) | payer OTHER, SELFPAY ==
[2025-01-31 13:20] LABS: PTT Activated 28.1 sec (20.6-30.2)
[2025-01-31 14:16] LABS: TSH (W/Ref FT4) 1.57 uIU/mL (0.36-3.74)
[2025-01-31 22:28] LABS: Thyroglobulin Antibody <15 U/mL (<=60); Thyroperoxidase Antibody <28 U/mL (<=60)
[2025-02-02 10:51] LABS: Activated Partial Thrombo Time 34 sec (25 - 37); DRVVT Screen Ratio 1.18 ratio (<1.20); Prothrombin Time (PT) 11.2 sec (9.4 - 12.5)
[2025-02-02 13:04] LABS: Antimullerian Hormone 6.1 ng/mL (0.89-9.9)
[2025-02-02 14:29] LABS: Beta 2 Glycoprotein 1 Ab IgA <9.4 SAU
[2025-02-03 16:32] LABS: Phospholipid Ab, IgG <9.4 GPL; Phospholipid Ab, IgM <9.4 MPL
== END 2025-01-31 12:50 | disposition home or self-care (01) ==
LOC: LBO 12:51
PROVIDERS: PCP Nurse Practitioner Family; Visit Provider Obstetrics & Gynecology
DX: N96 Recurrent pregnancy loss (principal)
CPT/HCPCS: 36415; 85390; 85610; 85613; 85730; 86146; 86147; 86376; 83520; 84443

== ENCOUNTER 2025-05-02 16:01 | Outpatient (CLI) | payer OTHER, SELFPAY ==
[2025-05-02 16:37] LABS: HCG Quant, Pregnancy < 1 mIU/mL (1-3)
[2025-05-02 22:54] LABS: Estradiol 171 pg/mL (See Note)
[2025-05-02 23:01] LABS: LH 1.8 mIU/mL (See Note)
[2025-05-02 23:04] LABS: Progesterone 16.4 ng/mL (See Table)
== END 2025-05-02 16:02 | disposition home or self-care (01) ==
LOC: LBO 16:02
PROVIDERS: PCP Nurse Practitioner Family; Visit Provider Obstetrics & Gynecology Reproductive Endocrinology
DX: N92.5 Other specified irregular menstruation (principal)
CPT/HCPCS: 36415; 82670; 83002; 84144; 84702

== ENCOUNTER 2025-05-09 13:19 | Outpatient (CLI) | payer OTHER, SELFPAY ==
[2025-05-09 13:02] LABS: HCG Quant, Pregnancy < 1 mIU/mL (1-3)
== END 2025-05-09 13:20 | disposition home or self-care (01) ==
LOC: LBO 13:19
PROVIDERS: PCP Nurse Practitioner Family; Visit Provider Obstetrics & Gynecology Reproductive Endocrinology
DX: N97.9 Female infertility, unspecified (principal); Z13.79 Encounter for other screening for genetic and chromosomal anomalies
CPT/HCPCS: 36415; 84144; 84702

== ENCOUNTER 2025-08-22 14:53 | Emergency (ER) | payer OTHER, SELFPAY ==
[2025-08-22 14:55] VITALS: BP 128/102; PULSE 76; RESP 18; TEMP 36.6; O2SAT 97
--- NOTE | 2025-08-22 15:00 | RT.EKG_ITS ---
APPROVED REPORT Exam: Resting ECG Reason for Exam: chest pain Patient Location: E HR:86 bpm ECG Measurements Heart Rate 86 AXIS VA 132 P 73 QRSd 85 QRS 71 QT 367 T 43 QTc 440 Conclusion Sinus rhythm, rate 86 No interval abnormalities No STEMI No significant changes from priors
--- NOTE | 2025-08-22 15:45 | DI.RAD_ITS ---
Exam(s) XR CHEST 2V PA LATERAL EXAM: XR CHEST 2V PA LATERAL CLINICAL HISTORY: Chest pain TECHNIQUE: 2D digital imaging was performed. Two views. COMPARISON: CR,XR XR PORTABLE CHEST AP from 12/25/2020 FINDINGS: Stable moderate in leads are coiled over the anterior chest. HEART: Normal size. Aorta: Not dilated. PULMONARY VASCULATURE: Normal. MEDIASTINUM: Unremarkable. LUNGS: Clear. PLEURAL SPACE: No pleural effusion or pneumothorax. BONE:Unremarkable for age. SOFT TISSUES: Unremarkable. IMPRESSION: No acute abnormality. DATA REPOSITORY: RADIATION DOSE DELIVERED:
[2025-08-22 15:58] VITALS: RESP 18
--- NOTE | 2025-08-22 15:59 | W.ED.GENAD ---
Discharge Plan Disposition Patient Disposition: Home Condition: Stable Discharge Details Clinical Impression: COVID-19, Chest discomfort Primary Care Provider: Chelsie Purdy ED Provider: Kiana Ivey Home Meds and New Rx's Prescriptions: No Action folic acid 400 mcg tablet 0.4 mg PO DAILY Women's Multivitamin 18 mg-400 mcg- 500 mg-50 mcg tablet 1 tab PO DAILY magnesium 200 mg tablet 200 mg PO DAILY Zepbound 2.5 mg/0.5 mL pen injector SUBCUT Discharge Instructions Instructions: COVID-19 ED Additional Instructions: You were seen in the emergency department today for evaluation of chest discomfort in the setting of a recent diagnosis of COVID-19. In our department your a full physical examination performed, had an EKG that was reassuring and had laboratory studies that did not show any abnormalities, including 2 negative troponins. Your x-ray was normal, though I do recommend that you continue to take your Paxlovid and any [id number] medications including aspirin that you need to manage your discomfort. Your potassium was on the low side of normal, you can always supplement this with dietary choices such as potatoes, bananas, leafy greens. Please follow-up with your primary care provider in the next few days to discuss this visit and any symptoms that change, worsen, or persist. Thank you for allowing us to be part of your care. Discharge Data Discharge Date/Time-TO BE ENTERED AT DEPARTURE: 08/22/25 18:01 HPI General Mode of arrival: ambulatory. Date/Time Provider Initiated Documentation: 08/22/25 15:01. Limitations to Documentation: no limitations. Information obtained by: patient, family and old records reviewed. HPI Narrative: This is a 29-year-old female patient with a recent diagnosis of COVID-19 with a total of 6 days of symptoms, presenting for evaluation of chest discomfort. She reports that she has been taking Paxlovid, and has been taking aspirin given a history of elevated troponin after the COVID vaccine. She states that she presented today as the chest pain is causing her concern and she wants to ensure that she is not having a similar event. She reports that she has had a cough that is not productive of sputum, has not had a fever in a few days, has been maintaining her hydration and has otherwise been without changes in her health. The pain is located in the left/sternal region of her chest, does not radiate, is dull. Related Data Home Medications ?Medication ?Instructions ?Recorded ?Confirmed magnesium 200 mg tablet 200 mg PO DAILY 04/19/24 08/22/25 folic acid 400 mcg tablet 0.4 mg PO DAILY 05/31/24 08/22/25 qzellfci-skf-icpy 18 mg-FA 400 1 tab PO DAILY 05/31/24 08/22/25 mcg-calcium 500 mg-vit K 50 mcg tablet (Women's Multivitamin) tirzepatide (weight loss) 2.5 mg subcut 08/22/25 mg/0.5 mL subcutaneous pen injector (Zepbound) Allergies Allergy/AdvReac Type Severity Reaction Status Date / Time amoxicillin Allergy Intermediate RASH Verified 08/22/25 14:59 General Stated Complaint: Chest Pain SANDOVAL: 3 Exam Narrative Exam Narrative: Gen: Awake and alert, in no apparent distress HEENT: Non-icteric sclera Neck: Supple Lungs: No apparent respiratory distress, normal respiratory effort. Lung sounds clear and equal bilaterally without wheezing, rhonchi, rales CV: Appears well perfused, heart with regular rate and rhythm, no murmurs auscultated, strong distal pulses Abdomen: Non-distended MSK: Moves 4 extremities without apparent limitation in ROM. No peripheral edema or unilateral calf swelling Skin: Visualized skin without rashes, cyanosis. Neuro: Normal Gait, no obvious focal deficits or facial asymmetry. Speaks in full, clear sentences. Psych: Appropriate for situation. Course Vital Signs Vital signs: Vital Signs Temperature 36.6 C 08/22/25 14:55 Pulse 76 08/22/25 14:55 Respiratory Rate 18 08/22/25 14:55 Blood Pressure 128/102 H 08/22/25 14:55 Pulse Oximetry 97 08/22/25 14:55 Temperature 36.6 C 08/22/25 14:55 Pulse 76 08/22/25 14:55 Respiratory Rate 18 08/22/25 14:55 Blood Pressure 128/102 H 08/22/25 14:55 Pulse Oximetry 97 08/22/25 14:55 Pain Level 2 08/22/25 14:55 Medical Decision Making This is a 29-year-old female patient presenting for evaluation of chest pain in the setting of a recent diagnosis of COVID-19. My differential includes but is not limited to sequelae of viral upper respiratory infection/COVID-19, certainly considered pericarditis and myocarditis, ACS, arrhythmia, pulmonary abnormalities including pneumonia, bronchitis. Obtained an EKG which shows a sinus rhythm with no evidence of ischemia, interval abnormality, or ectopy. We will obtain a chest x-ray and labs to include CBC, CMP, magnesium, troponin, and lipase. -I independently interpreted the laboratory studies, which show no significant leukocytosis, anemia, or thrombocytopenia. The chemistry panel is without evidence of electrolyte abnormality, kidney dysfunction, or liver injury, other than a borderline low potassium at 3.3 which the patient was instructed to replete orally through diet. Initial troponin is very low at 5, 1 hour delta troponin 4, and I have a very low concern for ongoing cardiac ischemia. The chest x-ray was reviewed by myself and shows no abnormality to explain the patient's symptoms. I am most concerned for sequelae of COVID-19 infection and counseled the patient on good hydration and nutrition, ongoing NSAID therapy as needed for discomfort, and close outpatient follow-up. At this time, the patient has had a full medical evaluation and is safe for discharge to home. They are hemodynamically stable, ambulatory, and tolerating PO. They are understanding of the follow-up plan and return precautions. They left our facility without incident. Kiana Ivey MD [facility] All Active Problems (Updated 08/22/25 @ 17:45 by Kiana Ivey MD) Chest discomfort (Acute) COVID-19 (Acute) Recurrent loss (Acute) Otalgia of right ear (Acute) TMJ arthralgia (Acute) Medical History (Updated 08/22/25 @ 17:45 by Kiana Ivey MD) Injury of conjunctiva and corneal abrasion of right eye w/o FB Wrist fracture, closed right; child Jaw dislocation Surgical History History of D&C 06/29/24 for 7wk MAB wisdom tooth extraction (03/21/15) Family History Other Diabetes maternal side Personal history of malignant neoplasm MGF-brain Father Diabetes Headache Mother Healthy adult Brother Healthy adult Social History Smoking/Tobacco Use Status: Never Smoking risk assessment performed?: Yes Alcohol Intake: current Alcohol Intake frequency: a few times a week Drug use: Rarely Substance use type: marijuana Counseling provided: none Household members: spouse and other Details: -Adonis Housing: house Number of Children: 0 Education Level: college current occupation: speach language pathologist - [employer] Sexually active: Yes Current gender identity: female What type of physical activity do you participate in: regular exercise Frequency: 5-6 times per week Seatbelt use: always Helmet use: Yes Drive intox or ride w/intox 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
[2025-08-22 16:26] LABS: Abs Immature Grans 0.02 10^3/uL (0.0-0.06); HCT 40.7 % (36.0-46.0); HGB 14.0 g/dL (11.2-15.7); Immature Grans % 0.3 %; MCH 28.1 pg (27.0-33.0); MCHC 34.4 % (32.0-36.0); MCV 82 fL (80-95); MPV 9.7 fL (8.0-11.0); Platelet Count 231 10^3/uL (130-400); RBC 4.98 10^6/uL (3.93-5.22); RDW 12.1 % (11.7-14.6); RDW-SD 35.9 fL; WBC 5.89 10^3/uL (4.4-10.8)
[2025-08-22 16:46] LABS: ALT 21 U/L (14-59); AST 17 U/L (15-37); Albumin 3.9 g/dL (3.4-5.0); Alkaline Phosphatase 101 U/L (46-116); Anion Gap 10.5 mmol/L (3-11); BUN 8 mg/dL (7-18); Bilirubin, Total 0.8 mg/dL (0.2-1.0); CO2 30.5 mmol/L (21.0-32.0); Calcium 9.0 mg/dL (8.5-10.1); Chloride 101 mmol/L (98-107); Estimated GFR 88.75 (mL/min/1.73m2); Glucose 88 mg/dL (74-106); Lipase 31 U/L (<78); Magnesium 2.2 mg/dL (1.8-2.4); Potassium 3.3 mmol/L (3.5-5.1); Sodium 142 mmol/L (136-145); Total Protein 7.7 g/dL (6.4-8.2); Troponin I 5 ng/L (<or=51)
[2025-08-22 17:07] VITALS: BP 114/78; PULSE 80; RESP 16; O2SAT 100
[2025-08-22 17:34] LABS: Troponin I 4 ng/L (<or=51)
[2025-08-22 17:59] VITALS: BP 106/80; PULSE 85; RESP 18; O2SAT 99
== END 2025-08-22 18:01 | disposition home or self-care (01) ==
PROVIDERS: Emergency Provider Emergency Medicine; PCP Nurse Practitioner Family
DX: U07.1 COVID-19 (principal); R07.89 Other chest pain
CPT/HCPCS: 99284 ×2; 36415; 80053; 83690; 93005; 71046; 83735; 84484; 85025; 93010

== ENCOUNTER 2025-09-12 08:48 | Outpatient (REF) | payer OTHER, SELFPAY ==
--- NOTE | 2025-09-12 08:20 | PAPFT_PTH ---
PATIENT: Lili Mack LOC: [facility] U#:[id number] AGE/SX: 29/F ROOM: RE09/12/[address]: Tena Pritchard NP : [id number] BED: DIS: 09/12/2025 SPEC #: [id number] RECD: 09/12/25 12:30 STATUS: BRIAN FISHER #: [id number] OMKAR: 09/12/25 08:[address]: Tena Pritchard NP DEPT: ON LICENSE OF [facility] Cytology RECD BY: Penny Leach ENTERED: 09/12/25 12:30 SP TYPE: PAPFT OTHR DR: Chelsie Purdy Tissues: 1 - CX/ENDOCX FOR PAP SMEARS Procedures: PAP THIN PREP/[facility] Screening Comments: [id number]
== END 2025-09-12 08:49 | disposition home or self-care (01) ==
LOC: LBN 08:48
PROVIDERS: PCP Nurse Practitioner Family; Visit Provider Nurse Practitioner Women's Health
DX: Z12.4 Encounter for screening for malignant neoplasm of cervix (principal)
CPT/HCPCS: 88142